=== PATIENT | female | born 1980 | race Caucasian/White ===

== ENCOUNTER 2021-06-28 19:20 | Emergency (ER) | payer OTHER ==
[~2021-06-28] VITALS: Ht 162.6 cm; Wt 70.3 kg
[2021-06-28 19:40] LABS: Source, Urine Clean Catch
[2021-06-28 19:43] LABS: Appearance, Urine Turbid (Clear); Bilirubin, Urine Neg (Neg); Blood, Urine 5+ (Neg); Color, Urine Red (P-Yellow); Glucose Qualitative, Urine Neg (Neg); Ketones, Urine 2+ (Neg); Leukocyte Esterase, Urine 1+ (Neg); Nitrite, Urine Neg (Neg); Protein, Urine 4+ (Neg); Urobilinogen, Urine NORM (Normal); pH, Urine 6.5 (5.0-8.0)
[2021-06-28 19:50] LABS: Red Blood Cells, Urine TNTC /hpf (0-2)
[2021-06-28 19:55] LABS: BASOPHILS ABSOLUTE AUTO 0.08 K/mm3 (0.00-0.23); BASOPHILS PERCENT AUTO 1 % (0-2); EOSINOPHILS PERCENT AUTO 0 % (0-6); Hemoglobin 12.6 g/dL (11.5-16.0); IMMATURE GRAN ABSOLUTE AUTO 0.05 K/mm3 (0.00-0.10); IMMATURE GRAN PERCENT AUTO 0 % (0-1); LYMPHOCYTES ABSOLUTE AUTO 2.08 K/mm3 (0.84-5.20); LYMPHOCYTES PERCENT AUTO 14 % (21-46); MONOCYTES ABSOLUTE AUTO 0.94 K/mm3 (0.16-1.47); MONOCYTES PERCENT AUTO 6 % (4-13); Mean Corpuscular HGB Conc 33.2 g/dL (31.5-36.5); Mean Corpuscular Volume 96 fL (80-100); Mean Platelet Volume 9.6 fL (9.1-12.4); NEUTROPHILS ABSOLUTE AUTO 11.88 K/mm3 (1.96-9.15); NEUTROPHILS PERCENT AUTO 79 % (41-73); Platelet Count 355 K/mm3 (150-400); RDW Coefficient Variation 12.7 % (11.7-14.2); RDW Standard Deviation 45.6 fL (35.1-46.3); Red Blood Cell Count 3.94 M/mm3 (3.80-5.20); White Blood Cell Count 15.03 K/mm3 (4.00-11.30)
[2021-06-28 19:57] LABS: White Blood Cells, Urine 25-50 /hpf (0-5)
[2021-06-28 19:58] LABS: Bacteria Many /hpf; Squamous Epithelial Cells Few /hpf (Few)
[2021-06-28 20:20] LABS: Alanine Aminotransfer (ALT/SGP 25 U/L (12-78); Albumin, Blood 3.4 g/dL (3.4-5.0); Albumin/Globulin Ratio 1.1 (0.8-1.8); Alk Phos 76 U/L (50-136); Anion Gap 3 mmol/L (6-16); Aspartate Aminotrans (AST/SGOT 25 U/L (12-37); Bilirubin, Total 0.2 mg/dL (0.1-1.0); Blood Urea Nitrogen 14 mg/dL (8-24); Bun/Creatinine Ratio 16.3 (12.0-20.0); CO2, Blood 27 mmol/L (21-32); Calcium, Blood 8.3 mg/dL (8.5-10.1); Chloride, Blood 108 mmol/L (98-108); Creatinine, Blood 0.86 mg/dL (0.40-1.00); Globulin, Blood 3.1 g/dL (2.2-4.0); Glomerular Filtration Rate >60 (60-); Glucose, Blood 128 mg/dL (70-99); Potassium, Blood 3.7 mmol/L (3.5-5.5); Sodium, Blood 138 mmol/L (136-145); Total Protein, Blood 6.5 g/dL (6.4-8.2)
[2021-06-29 00:21] LABS: Candida species (DNA Probe) Negative (NEGATIVE); G. vaginalis (DNA Probe) Positive (NEGATIVE); T. vaginalis (DNA Probe) Negative (NEGATIVE)
[2021-06-29] MEDS ORDERED: SULTRIDS PO (01:08)
[2021-06-29] MEDS ORDERED: DOXY100 PO (01:08)
[2021-06-29] MEDS ORDERED: METR500 PO (01:08)
[2021-06-29] MEDS ORDERED: IBUP600 PO (01:08)
[2021-06-29] MEDS ORDERED: ONDA4 PO (01:10)
== END 2021-06-29 01:20 | disposition home or self-care (01) ==
LOC: ER 19:20
PROVIDERS: Physician Assistant; Student in an Organized Health Care Education/Training Program
DX: N30.01 Acute cystitis with hematuria (principal); N76.0 Acute vaginitis; N73.9 Female pelvic inflammatory disease, unspecified
CPT/HCPCS: 74176; 80053; 81001; 81025; 83690; 85025; 87077; 87086; 87186; 87480; 87491; 87510; 87660; 96365; 96375; 99284-25; A9270; J0696; J1885; J2405; J2765; J7030

== ENCOUNTER 2022-05-08 19:59 | Emergency (ER) | payer OTHER ==
[~2022-05-08] VITALS: Ht 162.6 cm; Wt 56.7 kg
[~2022-05-08 19:59] MED LIST: DOXY100 PO; IBUP600 PO; METR500 PO; ONDA4 PO; SULTRIDS PO
[2022-05-08 21:00] LABS: Source, Urine Voided
[2022-05-08 21:04] LABS: Appearance, Urine Cloudy (Clear); Bilirubin, Urine Neg (Neg); Blood, Urine Neg (Neg); Color, Urine Yellow (P-Yellow); Glucose Qualitative, Urine Neg (Neg); Ketones, Urine Neg (Neg); Leukocyte Esterase, Urine 1+ (Neg); Nitrite, Urine Neg (Neg); Protein, Urine Neg (Neg); Specific Gravity, Urine 1.005 (1.003-1.022); Urobilinogen, Urine NORM (Normal)
[2022-05-08 21:12] LABS: Amorphous Heavy (0-Heavy); Bacteria Mod /hpf; Red Blood Cells, Urine 0-2 /hpf (0-2); Squamous Epithelial Cells Mod /hpf (Few)
[2022-05-08 21:13] LABS: Renal Epithelial Few /hpf (0-Rare); Transitional Epithelial Cells Rare /hpf (0-Rare)
[2022-05-08] MEDS ORDERED: DOXY100 PO (22:34)
== END 2022-05-08 23:17 | disposition home or self-care (01) ==
LOC: ER 19:59
PROVIDERS: Student in an Organized Health Care Education/Training Program
DX: R30.0 Dysuria (principal)
CPT/HCPCS: 81001; 87086; A9270; J0696

== ENCOUNTER 2022-05-11 14:53 | Emergency (ER) | payer OTHER ==
[2022-05-11] MEDS ORDERED: IBUP600 PO (16:59)
== END 2022-05-11 17:19 | disposition home or self-care (01) ==
DX: S83.512A Sprain of anterior cruciate ligament of left knee, initial encounter (principal); X50.1XXA Overexertion from prolonged static or awkward postures, initial encounter; Z79.899 Other long term (current) drug therapy

== ENCOUNTER 2022-08-18 23:33 | Emergency (ER) | payer OTHER ==
[~2022-08-18] VITALS: Ht 160 cm; Wt 49.9 kg
== END 2022-08-19 02:04 | disposition home or self-care (01) ==
LOC: ER 23:33
DX: S01.01XA Laceration without foreign body of scalp, initial encounter (principal); W01.10XA Fall on same level from slipping, tripping and stumbling with subsequent striking against unspecified object, initial encounter; Z79.899 Other long term (current) drug therapy
CPT/HCPCS: 12002; 99283-25

== ENCOUNTER 2022-08-28 10:00 | Emergency (ER) | payer OTHER ==
[~2022-08-28] VITALS: Ht 162.6 cm; Wt 56.7 kg
== END 2022-08-28 10:26 | disposition home or self-care (01) ==
LOC: ER 10:00
DX: Z48.02 Encounter for removal of sutures (principal)
CPT/HCPCS: 99281

== ENCOUNTER 2022-10-17 23:11 | Emergency (ER) | payer OTHER ==
[~2022-10-17] VITALS: Ht 162.6 cm; Wt 63.5 kg
[2022-10-17 23:25] VITALS: BP 150/72
== END 2022-10-18 00:18 | disposition home or self-care (01) ==
LOC: ER 23:11
DX: Z32.02 Encounter for pregnancy test, result negative (principal); F17.210 Nicotine dependence, cigarettes, uncomplicated
CPT/HCPCS: 81000; 81025; 99281